=== PATIENT | male | born 1975 | race African-American/Black ===

== ENCOUNTER 2017-11-17 16:37 | Outpatient (CLI) | payer BC ==
[~2017-11-17 16:37] MED LIST: CYCLOBENZAPRINE10 MG PO; ISENTRESS400 MG PO; NAPROSYN500 MG PO; PROAIR HFA8.5 GM INH; TRAMADOL HCL150 MG PO; TRUVADA1 TAB PO; VICODIN 5-5001 EACH PO
--- NOTE | 2017-11-18 11:08 | Diagnostic Imaging Report ---
Indication: Cough Technique: XRAY Chest 2v Comparison: 08/15/2012 Findings: Heart size and mediastinal contours are within normal limits and stable compared to the prior exam. There is unchanged calcified right hilar lymph node and calcified granuloma in the right middle lobe. There is no new focal airspace consolidation, pleural effusion or pneumothorax. No acute osseous abnormality is seen. There is mild scoliosis which is unchanged. Impression: No radiographic evidence of acute cardiopulmonary disease. Stable findings as above.
== END 2017-11-17 18:37 | disposition home or self-care (01) ==
LOC: RAD 16:37
DX: J20.9 Acute bronchitis, unspecified (principal); R91.1 Solitary pulmonary nodule; M41.9 Scoliosis, unspecified
CPT/HCPCS: 71046

== ENCOUNTER 2020-08-13 10:50 | Inpatient (IN) | payer BC ==
[~2020-08-13] VITALS: Ht 193 cm; Wt 84.8 kg
[2020-08-13] VITALS (11 sets, daily range): BP systolic 124–136; BP diastolic 78–95
--- NOTE | 2020-08-13 07:09 | Pre-Procedure Note/Attestation ---
Pre-Procedure Note/Attestation Complete Prior to Procedure Planned Procedure: left Procedure Narrative: left knee i&d Indications for Procedure Pre-Operative Diagnosis: left knee abscess Attestation I attest that I discussed the nature of the procedure; its benefits; risks and complications; and alternatives (and the risks and benefits of such alternatives), prior to the procedure, with the patient (or the patient's legal roofing sales representative). I attest that, if there was a reasonable possibility of needing a blood tra nsfusion, the patient (or the patient's legal roofing sales representative) was given the [facility] standardized written summary, pursuant to the Juan Carlos Lily Blood Safety Act ([place] Health and Safety Code # 1645, as amended). I attest that I re-evaluated the patient just prior to the surgery and that there has been no change in the patient's H&P, except as documented below:none Johnny De Jesus MD Aug 13, 2020 07:09
[~2020-08-13 10:50] MED LIST changes: +Acetaminophen (Non formulary) 100 ML IV ONE; +ceFAZolin sod 1 GM in NS 55 ML IVPB ONE; +celeBREX 200mg Cap **SURGERY PATIENTS ONLY ORAL ONE; +oxyCONTIN 10mg tab ORAL ONE
[2020-08-13] MEDS ORDERED: TIVICAY50 MG ORAL (11:32)
[2020-08-13] MEDS ORDERED: Descovy PO (11:34)
[2020-08-13] MEDS ORDERED: NeoSporin Gu Irrig 1ml Amp IRRIG ONE (12:46)
[2020-08-13] MEDS ORDERED: Ropivacaine 5mg/ml Vial 30ml INJ ONE (12:46)
[2020-08-13] MEDS ORDERED: Bacitracin 50000 Units Vial ONE (12:46)
[2020-08-13] MEDS ORDERED: celeBREX 200mg Cap **SURGERY PATIENTS ONLY ORAL ONE (12:55)
[2020-08-13] MEDS ORDERED: oxyCONTIN 10mg tab ORAL ONE (12:55)
[2020-08-13] MEDS ORDERED: Hydromorphone 0.5mg/0.5ml inj SUBQ PRN (13:37)
[2020-08-13] MEDS ORDERED: HYDROcodone/Acetamin 5/325 tab ORAL PRN ×2 (13:45→14:00)
[2020-08-13] MEDS ORDERED: Sterile Water Irrig 1000ml IRRIG ONE (13:47)
[2020-08-13] MEDS ORDERED: LR 1000ml ONE (13:47)
[2020-08-13] MEDS ORDERED: NS Irrig 1000ml ONE (13:47)
--- NOTE | 2020-08-13 13:51 | Anethesia Preoperative Eval ---
Anesthesia Pre-op PMH/ROS General Date of Evaluation: Aug 13, 2020 Time of Evaluation: 13:47 Anesthesiologist: Janes ASA Score: ASA 3 Mallampati Score Class I : Soft palate, uvula, fauces, pillars visible Class II: Soft palate, uvula, fauces visible Class III: Soft palate, base of uvula visible Class IV: Only hard plate visible Mallampati Classification: Class III Surgeon: Neal Diagnosis: L Knee Pain Surgical Procedure: L Knee I&D Anesthesia History: none Family History: no anesthesia problems Allergies: Coded Allergies: No Known Allergies (Unverified , 08/15/12) Medications: see eMAR Patient NPO?: Yes Past Medical History Cardiovascular: Reports: HTN Hematology/Immune: Reports: other - HIV, AIDS PSxH Narrative: B THR Anesthesia Pre-op Phys. Exam Physician Exam Last Vital Signs Date Time Temp Pulse Resp B/P (MAP) Pulse Ox O2 Delivery O2 Flow Rate FiO2 08/13/20 12:08 Room Air 08/13/20 11:55 97.9 84 18 132/95 100 Constitutional: NAD Neurologic: CN 2-12 intact Cardiovascular: RRR Respiratory: CTA Gastrointestinal: S/NT/ND Airway Exam Mallampati Score: Class III MO: limited ROM: full Teeth: missing, intact Anesthesia Pre-op A/P Risk Assessment & Plan Assessment: ASA 3 Plan: GA, SED Status Change Before Surgery: No Pre-Antibiotics Dru Gram Ancef IV Given Within 1 Hr of Incision: Yes Time Given: 14:06 Bakari Marrero MD Aug 13, 2020 13:51
[2020-08-13] MEDS ORDERED: Lidocaine 1% MPF 10mg/ml 5ml ONE (13:56)
[2020-08-13] MEDS ORDERED: Sodium Chloride 10ml vial INJ ONE (13:56)
[2020-08-13] MEDS ORDERED: fentaNYL 100 mcg/2 mL IV ONE (13:57)
[2020-08-13] MEDS ORDERED: Midazolam 2mg/2ml Inj ONE (13:57)
[2020-08-13] MEDS ORDERED: LORazepam Inj 2mg/ml 1ml IV PRN (14:00)
[2020-08-13] MEDS ORDERED: Labetalol 5mg/ml 20ml vial IV PRN (14:00)
[2020-08-13] MEDS ORDERED: HYDROcodone/Acetamin 7.5/325 tab ORAL PRN (14:00)
[2020-08-13] MEDS ORDERED: Atropine Sulfate 0.4mg/ml inj IVP PRN (14:00)
[2020-08-13] MEDS ORDERED: Metoclopramide 10mg/2ml Inj IVP PRN (14:00)
[2020-08-13] MEDS ORDERED: Hydromorphone 0.5mg/0.5ml inj IVP PRN (14:00)
[2020-08-13] MEDS ORDERED: Ketorolac 30mg Inj IV PRN ×2 (14:00)
[2020-08-13] MEDS ORDERED: LR 1000ml 1,000 ML IVLG SCH (14:00)
[2020-08-13] MEDS ORDERED: Midazolam 2mg/2ml Inj IVP PRN (14:00)
[2020-08-13] MEDS ORDERED: oxyCODONE HCL/Acetaminophen 5/325mg ORAL PRN (14:00)
[2020-08-13] MEDS ORDERED: fentaNYL 100 mcg/2 mL IV PRN (14:00)
[2020-08-13] MEDS ORDERED: Meperidine 25mg/1ml Inj (FOR RIGORS ONLY) IV PRN (14:00)
[2020-08-13] MEDS ORDERED: Acetaminophen (Non formulary) 100 ML IV ONE (14:00)
[2020-08-13] MEDS ORDERED: DiphenhydrAMINE 50mg/ml Inj IVP PRN (14:00)
[2020-08-13] MEDS ORDERED: ceFAZolin sod 1 GM in D5W 55 ML IV SCH (14:00)
[2020-08-13] MEDS ORDERED: Vancomycin 1gm vial IVPB ONE (14:19)
--- NOTE | 2020-08-13 14:35 | Immediate Post-Op Evaluation ---
Immediate Post-Op Evalulation Immediate Post-Op Evalulation Procedure: L Knee I&D Date of Evaluation: Aug 13, 2020 Time of Evaluation: 15:07 IV Fluids: 800 LR Blood Products: 0 Estimated Blood Loss: 25 Urinary Output: 0 Blood Pressure Systolic: 124 Blood Pressure Diastolic: 78 Pulse Rate: 81 Respiratory Rate: 16 O2 Sat by Pulse Oximetry: 100 Temperature (Fahrenheit): 97.5 Pain Score (1-10): 2 Nausea: No Vomiting: No Complications 0 Patient Status: awake, reacts, patent, extubated, none Hydration Status: adequate Dru Gram Vancomycin IV Given Within 1 Hr of Incision: Yes Time Given: 13:06 Bakari Marrero MD Aug 13, 2020 14:35
--- NOTE | 2020-08-13 14:36 | 48 Hour Post Anesthesia Eval ---
Post Anesthesia Evaluation Procedure: L Knee I&D Date of Evaluation: Aug 13, 2020 Time of Evaluation: 17:12 Blood Pressure Systolic: 144 0: 81 Pulse Rate: 73 Respiratory Rate: 18 Temperature (Fahrenheit): 98 O2 Sat by Pulse Oximetry: 99 Airway: patent Nausea: No Vomiting: No Pain Intensity: 2 Hydration Status: adequate Cardiopulmonary Status: Stable Mental Status/LOC: patient returned to baseline Follow-up Care/Observations: 0 Post-Anesthesia Complications: 0 Follow-up care needed: N/A Bakari Marrero MD Aug 13, 2020 14:36
--- NOTE | 2020-08-13 14:44 | Brief Operative Note ---
Immediate Post Operative Note Operative Note Chief Complaint: left knee drainage Pre-op Diagnosis: left knee abscess Procedure: left knee I&D Post-op Diagnosis: same as pre-op Findings: consistent w/pre-op dx studies Surgeon: md jared Maintenance Carpenter: shabnam sinclair Anesthesiologist: md clarence Anesthesia: general Specimen: yes Complications: none Condition: stable Fluids: ns Estimated Blood Loss: minimal Drains: NARESH Implant(s) used?: No Johnny De Jesus MD Aug 13, 2020 14:44
[2020-08-13] MEDS: Docusate 100mg cap ORAL SCH (17:39)
--- NOTE | 2020-08-13 17:45 | Operative Note - Dictated ---
DATE OF OPERATION: 08/13/2020 PREOPERATIVE DIAGNOSIS: Left knee infected anterior tibial wound right over the anterior tibial tuberosity. POSTOPERATIVE DIAGNOSIS: Left knee infected anterior tibial wound right over the anterior tibial tuberosity. PROCEDURE: 1. Left anterior tibial tubercle infected wound irrigation and debridement. 2. Multiple cultures taken and sent to the lab for identification of organism. 3. Irrigation and debridement of the left anterior tibial wound over the anterior tibial tubercle with irrigation with 4 mL of triple antibiotic Simpulse irrigation. SURGEON: Johnny De Jesus MD GLOST KILN PLACER: Brii Tate PA-C ANESTHESIOLOGIST: Bakari Marrero MD ANESTHESIA: General LMA anesthesia. ESTIMATED BLOOD LOSS: Less than 50 mL. COMPLICATIONS: None. DRAINS: One NARESH drain placed in in the wound. BRIEF HISTORY: Patient is a pleasant 44-year-old gentleman who had a chronic inflamed bursa over the anterior tibial tubercle. He failed nonoperative treatment. After full discussion of risks and benefits of surgery, he opted for surgical treatment in the form of resection of the bursa. This was performed approximately a month ago. He did well for about 2 weeks and on the third postop week, he started draining from his wound. He presented to the ER and the wound was opened, irrigated, and debrided in the ER and packed. He was started on Keflex and Bactrim last week on Wednesday. He continued on oral antibiotics, although he continued to have some draining from the wound after the packing was removed. After full discussion of risks and benefits of surgery and complications associated with it including continued infection, need for further surgery, neurovascular complications, possible DVT, PE, possibility of chronic cellulitis and osteomyelitis, and other complications that may arise, he opted for surgical treatment in form of irrigation and debridement of the wound. OPERATIVE PROCEDURE: Patient was brought to the operative table and was placed supine. All pressure points were well padded. General LMA anesthesia was induced. Left leg was prepped and draped in usual sterile fashion. Tourniquet was not inflated. The anterior knee wound was draining. The wound was opened. Preoperative antibiotics were not given. Multiple deep cultures were obtained once the wound was opened. There was some area there was an extensive amount of serous brown fluid that was collected into the medial tibial face just medial to the anterior tibial tubercle over the pes anserinus bursal area. This area was completely debrided using combination of curettes, rongeurs, and other material. The cultures were sent into the laboratory and tissue cultures were sent to the laboratory. At this point, 1 g of vancomycin antibiotic was given after cultures were obtained. At this point, the debridement was undertaken. All chronically inflamed then necrotic tissue was removed. Wounds were thoroughly irrigated using 4 liters of Simpulse triple antibiotic irrigation. Once this was completed, there was excellent granulation tissue around the knee wound. The knee wound was extended 1.5 centimeter proximally and distally and this provided excellent exposure. There was no necrotic tissue and there was good vascularity to the area. At this point, a drain hole was made medially and inferiorly and a #10 NARESH drain was placed in. The NARESH drain was then tied in without any complication. Once this was completed, the wound was closed using 3-0 nylon sutures. Sterile dressing was applied. Patient was taken to recovery room in stable condition. All lap counts and instrument counts were correct. Patient will be admitted for IV antibiotic treatment and consultation with infectious disease specialist. Johnny De Jesus M.D. DR: ELLEN JOB#: [id number] CC: DARION
[2020-08-13] MEDS ORDERED: D5 1/2NS 1,000 ML IV SCH (18:00)
[2020-08-13] MEDS ORDERED: Albuterol 90mcg Inhaler 8gm INH PRN (18:15)
[2020-08-13] MEDS ORDERED: Albuterol ud Inhalation HHN PRN (18:15)
[2020-08-13] MEDS: HYDROmorphone 1mg/ml Carpuject SUBQ PRN (19:58)
[2020-08-13] MEDS: Vancomycin 1.25gm Premix q24h IVPB SCH (20:03)
[2020-08-13] MEDS ORDERED: Vancomycin 1 GM in D5W 275 ML IVPB SCH (21:00)
[2020-08-13] MEDS ORDERED: Dolutegravir Sodium 50mg tab ORAL SCH (21:00)
[2020-08-14 00:05] VITALS: BP 131/77
[2020-08-14 03:55] VITALS: BP 126/76
[2020-08-14] MEDS: HYDROmorphone 1mg/ml Carpuject SUBQ PRN ×4 (05:26→21:56)
[2020-08-14 06:03] LABS: BASOPHILS % (AUTO) 0.6 % (0.0-2.0); EOSINOPHILS % (AUTO) 0.4 % (0.0-3.0); HEMATOCRIT 42.9 % (42.0-52.0); LYMPHOCYTES % (AUTO) 19.3 % (20.0-45.0); MEAN CORPUSCULAR VOLUME 98 FL (80-99); MONOCYTES % (AUTO) 6.7 % (1.0-10.0); PLATELET COUNT 336 K/UL (150-450); RED BLOOD COUNT 4.36 M/UL (4.70-6.10); RED CELL DISTRIBUTION WIDTH 12.6 % (11.6-14.8); WHITE BLOOD COUNT 6.9 K/UL (4.8-10.8)
[2020-08-14 06:30] LABS: BLOOD UREA NITROGEN 12 mg/dL (7-18); CALCIUM 8.5 MG/DL (8.5-10.1); CARBON DIOXIDE 30 MMOL/L (21-32); CHLORIDE 102 MMOL/L (98-107); CREATININE 1.3 MG/DL (0.55-1.30); POTASSIUM 4.2 MMOL/L (3.5-5.1); SODIUM 136 MMOL/L (136-145)
[2020-08-14 08:00] VITALS: BP 126/74
--- NOTE | 2020-08-14 08:14 | Orthopedic Progress Note ---
Orthopedic - Progress Note Subjective Symptoms: improved - drain emptied this morning. 2ML overnight. on vanco for now. waiting for ID recs Objective Laboratory Tests Test 08/14/20 05:44 White Blood Count 6.9 K/UL (4.8-10.8) Red Blood Count 4.36 M/UL (4.70-6.10) L Hemoglobin 14.0 G/DL (14.2-18.0) L Hematocrit 42.9 % (42.0-52.0) Mean Corpuscular Volume 98 FL (80-99) Mean Corpuscular Hemoglobin 32.1 PG (27.0-31.0) H Mean Corpuscular Hemoglobin Concent 32.6 G/DL (32.0-36.0) Red Cell Distribution Width 12.6 % (11.6-14.8) Platelet Count 336 K/UL (150-450) Mean Platelet Volume 5.6 FL (6.5-10.1) L Neutrophils (%) (Auto) 73.0 % (45.0-75.0) Lymphocytes (%) (Auto) 19.3 % (20.0-45.0) L Monocytes (%) (Auto) 6.7 % (1.0-10.0) Eosinophils (%) (Auto) 0.4 % (0.0-3.0) Basophils (%) (Auto) 0.6 % (0.0-2.0) Sodium Level 136 MMOL/L (136-145) Potassium Level 4.2 MMOL/L (3.5-5.1) Chloride Level 102 MMOL/L (98-107) Carbon Dioxide Level 30 MMOL/L (21-32) Blood Urea Nitrogen 12 mg/dL (7-18) Creatinine 1.3 MG/DL (0.55-1.30) Estimat Glomerular Filtration Rate > 60 mL/min (>60) Glucose Level 133 MG/DL (74-106) H Calcium Level 8.5 MG/DL (8.5-10.1) Last 24 Hour Vital Signs Date Time Temp Pulse Resp B/P (MAP) Pulse Ox O2 Delivery O2 Flow Rate FiO2 08/14/20 03:55 98.2 104 18 126/76 (93) 97 08/14/20 00:05 98.4 84 17 131/77 (95) 97 08/13/20 21:00 Room Air 11/3/20 20:28 98.2 08/13/20 20:00 98.2 92 17 136/90 (105) 96 08/13/20 17:00 97.9 82 127/88 (101) 96 08/13/20 16:30 97.5 78 127/87 (100) 96 08/13/20 16:19 Room Air 08/13/20 16:00 98.8 78 134/86 (102) 98 08/13/20 16:00 97.6 82 19 130/84 99 Room Air 08/13/20 15:45 81 20 129/86 99 Room Air 08/13/20 15:30 78 19 130/86 100 Room Air 08/13/20 15:15 80 17 130/81 100 Simple Mask 6.0 08/13/20 15:06 83 18 130/83 100 Simple Mask 6.0 08/13/20 15:01 82 17 134/81 100 Simple Mask 6.0 08/13/20 14:56 97.5 81 16 124/78 100 Simple Mask 6.0 08/13/20 14:54 73 18 99 08/13/20 14:53 81 16 100 08/13/20 12:08 Room Air 08/13/20 12:05 Room Air 08/13/20 11:55 97.9 84 18 132/95 100 Room Air Intake and Output 08/13/20 08/14/20 19:00 07:00 Intake Total 500 ml 1675 ml Output Total 2002 ml Balance 500 ml -327 ml Intake Oral 0 ml 1000 ml IV Total 500 ml 675 ml Output Urine Total 2000 ml Drainage Total 2 ml # Voids 1 3 # Bowel Movements 1 Laboratory Tests Test 08/14/20 05:44 White Blood Count 6.9 K/UL (4.8-10.8) Red Blood Count 4.36 M/UL (4.70-6.10) L Hemoglobin 14.0 G/DL (14.2-18.0) L Hematocrit 42.9 % (42.0-52.0) Mean Corpuscular Volume 98 FL (80-99) Mean Corpuscular Hemoglobin 32.1 PG (27.0-31.0) H Mean Corpuscular Hemoglobin Concent 32.6 G/DL (32.0-36.0) Red Cell Distribution Width 12.6 % (11.6-14.8) Platelet Count 336 K/UL (150-450) Mean Platelet Volume 5.6 FL (6.5-10.1) L Neutrophils (%) (Auto) 73.0 % (45.0-75.0) Lymphocytes (%) (Auto) 19.3 % (20.0-45.0) L Monocytes (%) (Auto) 6.7 % (1.0-10.0) Eosinophils (%) (Auto) 0.4 % (0.0-3.0) Basophils (%) (Auto) 0.6 % (0.0-2.0) Sodium Level 136 MMOL/L (136-145) Potassium Level 4.2 MMOL/L (3.5-5.1) Chloride Level 102 MMOL/L (98-107) Carbon Dioxide Level 30 MMOL/L (21-32) Blood Urea Nitrogen 12 mg/dL (7-18) Creatinine 1.3 MG/DL (0.55-1.30) Estimat Glomerular Filtration Rate > 60 mL/min (>60) Glucose Level 133 MG/DL (74-106) H Calcium Level 8.5 MG/DL (8.5-10.1) Wound: clean, dry, intact Drains: NARESH - just emptied. 2ML overnight Neuro Status: normal Vascular Status: normal Additional Comments cx pending Assessment Post-op Diagnosis POD 1 Procedure Performed Left knee I&D Plan Plan: continue antibiotics - will keep vanco q12 ordered for now. ID team to see and adjust meds as appropriate. , continue drain - monitor drainage today. likely d/c tomorrow , discharge plan - may need longer inpt stay pending ID recs. If ID can start pt on PO abx, may be able to d/c home tomorrow. Brii Tate Aug 14, 2020 08:14
[2020-08-14] MEDS: Docusate 100mg cap ORAL SCH ×3 (08:56→17:42)
[2020-08-14] MEDS: DESCOVY ORAL SCH (08:56)
[2020-08-14] MEDS: Vancomycin 1.25gm Premix q24h IVPB SCH ×2 (08:56→21:55)
[2020-08-14] MEDS: Patient's Own Med - Tivicay 50mg ORAL SCH (08:57)
[2020-08-14 12:00] VITALS: BP 125/74
--- NOTE | 2020-08-14 12:40 | CDS Physician Query ---
Clarification is required for compliance, coding accuracy, and to reflect severity of illness for this patient Dear Dr. Johnny De Jesus Date: 08/14/2020 CDS name: Radha Cueto Clinical Documentation states: Op note: 44-year-old gentleman who had a chronic inflamed bursa over the anterior tibial tubercle... he opted for surgical treatment in the form of resection of the bursa. This was performed approximately a month ago... he started draining from his wound....debridement was undertaken. All chronically inflamed then necrotic tissue was removed. Wounds were thoroughly irrigated using 4 liters of Simpulse triple antibiotic irrigation. Once this was completed, there was excellent granulation tissue around the knee wound. Because there is documentation in the medical record of "Debridement," clarification is needed. Please document whether this is "Excisional" or "Nonexcisional" Debridement" of the wound, infection or burn. Specific type of debridement performed: [] Excisional: Please document the depth of tissue [] Skin [] Subcutaneous tissue and Fascia [] Muscle [] Joint [] Bone [x] Nonexcisional: [] Skin [x] Subcutaneous tissue and Fascia [] Muscle [] Joint [] Bone Present on Admission: [x] Yes [] No [] Clinically Undetermined Physician signature Date Please also document in your Progress Notes and/or Discharge Summary and indicate if the condition was present on admission. MTDD
--- NOTE | 2020-08-14 13:40 | Infectious Diseases Prog Note ---
Assessment/Plan Assessment/Plan Full consult to follow: A) 1) s/p chronic inflamed bursa resection left knee 2) left knee infected anterior tibial wound right over the anterior tibial tuberosity 3) treated with bactrim and keflex with persistent wound drainage 4) s/p debridement of infected wound - 08/13/20 - operative note reviewed P) 1) vancomycin iv 2) f/u on wound culture 3) d/w Dr. Grimm 4) monitor creatinine 5) thank you Subjective Allergies: Coded Allergies: No Known Allergies (Unverified , 08/15/12) Objective Last 24 Hour Vital Signs Date Time Temp Pulse Resp B/P (MAP) Pulse Ox O2 Delivery O2 Flow Rate FiO2 08/14/20 12:00 98.2 89 18 125/74 (91) 97 08/14/20 08:00 98.2 89 18 126/74 (91) 97 08/14/20 03:55 98.2 104 18 126/76 (93) 97 08/14/20 00:05 98.4 84 17 131/77 (95) 97 08/13/20 21:00 Room Air 08/13/20 20:28 98.2 08/13/20 20:00 98.2 92 17 136/90 (105) 96 08/13/20 17:00 97.9 82 127/88 (101) 96 08/13/20 16:30 97.5 78 127/87 (100) 96 08/13/20 16:19 Room Air 08/13/20 16:00 98.8 78 134/86 (102) 98 08/13/20 16:00 97.6 82 19 130/84 99 Room Air 08/13/20 15:45 81 20 129/86 99 Room Air 08/13/20 15:30 78 19 130/86 100 Room Air 08/13/20 15:15 80 17 130/81 100 Simple Mask 6.0 08/13/20 15:06 83 18 130/83 100 Simple Mask 6.0 08/13/20 15:01 82 17 134/81 100 Simple Mask 6.0 08/13/20 14:56 97.5 81 16 124/78 100 Simple Mask 6.0 08/13/20 14:54 73 18 99 08/13/20 14:53 81 16 100 Height (Feet): 6 Height (Inches): 4.00 Weight (Pounds): 187 Microbiology Date/Time Source Procedure Growth Status 08/13/20 13:00 Knee Left Gram Stain - Final Resulted 08/13/20 13:00 Knee Left Aerobic Culture - Preliminary NO GROWTH Resulted 08/13/20 13:00 Knee Left Anaerobic Culture Pending Resulted 08/12/20 13:40 Nasopharynx SARS-CoV-2 RdRp Gene Assay - Final Complete Laboratory Tests Test 08/14/20 05:44 White Blood Count 6.9 K/UL (4.8-10.8) Red Blood Count 4.36 M/UL (4.70-6.10) L Hemoglobin 14.0 G/DL (14.2-18.0) L Hematocrit 42.9 % (42.0-52.0) Mean Corpuscular Volume 98 FL (80-99) Mean Corpuscular Hemoglobin 32.1 PG (27.0-31.0) H Mean Corpuscular Hemoglobin Concent 32.6 G/DL (32.0-36.0) Red Cell Distribution Width 12.6 % (11.6-14.8) Platelet Count 336 K/UL (150-450) Mean Platelet Volume 5.6 FL (6.5-10.1) L Neutrophils (%) (Auto) 73.0 % (45.0-75.0) Lymphocytes (%) (Auto) 19.3 % (20.0-45.0) L Monocytes (%) (Auto) 6.7 % (1.0-10.0) Eosinophils (%) (Auto) 0.4 % (0.0-3.0) Basophils (%) (Auto) 0.6 % (0.0-2.0) Sodium Level 136 MMOL/L (136-145) Potassium Level 4.2 MMOL/L (3.5-5.1) Chloride Level 102 MMOL/L (98-107) Carbon Dioxide Level 30 MMOL/L (21-32) Blood Urea Nitrogen 12 mg/dL (7-18) Creatinine 1.3 MG/DL (0.55-1.30) Estimat Glomerular Filtration Rate > 60 mL/min (>60) Glucose Level 133 MG/DL (74-106) H Calcium Level 8.5 MG/DL (8.5-10.1) Current Medications Medications (Trade) Dose Ordered Sig/Eusebia Route PRN Reason Start Time Stop Time Status Last Admin Dose Admin Acetaminophen (Tylenol) 650 mg Q6H PRN ORAL mild pain 08/13/20 13:45 09/12/20 13:44 Acetaminophen/ Hydrocodone Bitart (Berne 5/325) 1 tab Q4H PRN ORAL For Pain 08/13/20 13:45 08/20/20 13:44 Albuterol Sulfate (Proventil) 2.5 mg Q6H PRN HHN WHEEZING 08/13/20 18:15 08/18/20 18:14 Docusate Sodium (Colace) 100 mg THREE TIMES A DAY ORAL 08/13/20 18:00 09/12/20 17:59 08/14/20 12:10 Hydromorphone HCl (Dilaudid) 0.5 mg Q4H PRN SUBQ Mild Pain (Pain Scale 1-3) 08/13/20 13:37 08/20/20 13:36 Hydromorphone HCl (Dilaudid) 1 mg Q3H PRN SUBQ Moderate Pain (Pain Scale 4-6) 08/13/20 13:45 08/20/20 13:44 08/14/20 09:04 Ondansetron HCl (Zofran) 4 mg Q6H PRN IVP Nausea & Vomiting 08/13/20 13:45 09/12/20 13:44 Patient Own Medication (Patient's Own Med) 1 ea DAILY ORAL 08/14/20 09:00 09/13/20 08:59 08/14/20 08:56 Patient Own Medication (Patient's Own Med) 1 ea DAILY ORAL 08/14/20 09:00 09/13/20 08:59 08/14/20 08:57 Temazepam (RestoriL) 7.5 mg HSPRN PRN ORAL Insomnia 08/13/20 13:45 08/20/20 13:44 Vancomycin HCl 250 ml @ 166.667 mls/hr Q12HR IVPB 08/13/20 21:00 08/18/20 20:59 08/14/20 08:56 Vancomycin HCl (Vanco pharmacy to dose) 1 ea DAILY PRN MISC . 08/13/20 15:30 09/12/20 15:29 Gill Cifuentes MD Aug 14, 2020 13:40
[2020-08-14 16:00] VITALS: BP 128/88
--- NOTE | 2020-08-14 18:30 | Consultation ---
DATE OF CONSULTATION: 08/14/2020 INFECTIOUS DISEASE CONSULTATION CONSULTING PHYSICIAN: Gill Cifuentes MD. ATTENDING PHYSICIAN: Johnny De Jesus MD. REFERRING PHYSICIAN: Johnny De Jesus MD. REASON FOR CONSULTATION: Left knee and lower extremity infected wound. CHIEF COMPLAINT: The patient's chief complaint coming into the hospital is left knee and lower extremity infected wound, need for debridement. HISTORY OF PRESENT ILLNESS: This is a very pleasant 44-year-old male who presents to [facility] with left lower extremity wound infection or infected wound involving the left knee area. The patient is status post resection of chronic inflamed bursa that failed nonoperative treatment. This resection prior to admission was performed about a month prior to admission. About two weeks and into the third postop week, he had a drainage from his wound. The patient presented to an emergency room where he had the wound debrided in the ER and packed. He was given Keflex and Bactrim, but noted on the oral antibiotics to still have drainage from the wound. I reviewed the cultures of [facility] and there was a group C Streptococcus organism. The patient now was admitted to [facility] for further irrigation and debridement of the left knee and lower extremity or leg infected wound. I saw the patient postoperatively. His left lower extremity and knee is covered. Wound culture at this time is pending. COVID testing was negative prior to surgery. Infectious Disease consultation was requested for antibiotic management. I discussed again the case with Dr. De Jesus yesterday and he is on perioperative vancomycin currently. Orders were noted and records were reviewed. REVIEW OF SYSTEMS: CONSTITUTIONAL: He has no focal weakness. No fatigue. He did not have any fever or chills prior to admission. He did have the left lower extremity or knee wound drainage. HEAD AND NECK: He denies any headache, neck stiffness, thrush, or dysphagia. GASTROINTESTINAL: No nausea or diarrhea. GENITOURINARY: No Gilliam. No CVA tenderness. No urinary symptoms. PULMONARY: No shortness of breath. SKIN: No rash. PAST MEDICAL HISTORY: As discussed, he has a history of left knee chronic inflamed bursa. Otherwise, no history of diabetes or hypertension. ALLERGIES: No known drug allergies. No antibiotic allergies. SOCIAL HISTORY: Negative for smoking, alcohol, or drug abuse. FAMILY HISTORY: Noncontributory. MEDICATIONS: Upon reviewing the MAR, he is on following medications. The patient has his own medications. He is on vancomycin, albuterol, and docusate. Vancomycin being dosed by pharmacy. He is on diphenhydramine, labetalol, meperidine, Zofran lorazepam, Reglan, Apresoline; these are all p.r.n. medications; oxycodone p.r.n.; hydrocodone, hydromorphone, Zofran, and temazepam. Outside medications noted and reconciliated. PHYSICAL EXAMINATION: VITAL SIGNS: Temperature 98.2, pulse rate 89, respiratory rate 18, blood pressure 125/74. Saturation 97%. GENERAL: Alert and responsive, in no acute distress. HEAD AND NECK: Oral exam, no thrush. Eyes, no icterus. Normocephalic. Neck is supple. No JVD. HEART: Regular. No gallop or murmur. LUNGS: Clear bilaterally. No rhonchi or rales. ABDOMEN: Soft. Positive bowel sounds. Nontender. SKIN: No rash. MUSCULOSKELETAL: Legs are without any obvious cellulitis. Knee is covered. PERIPHERAL VASCULAR: No gangrene or cyanosis. LINE SITES: Without phlebitis. GENITOURINARY: No Gilliam. NEUROLOGIC: Intact. LABORATORY DATA: White count 6.9, hemoglobin 14.0. Creatinine is 1.3. Cultures - surgical culture for left knee is still pending. COVID testing is negative. Outside records, [facility] records show that the culture of the left knee had group C Streptococcus species. IMAGING: No imaging studies currently. ASSESSMENT AND PLAN: 1. The patient is status post chronic inflamed bursa resection of left knee with secondary infected wound that still had persistent drainage after Bactrim and Keflex. Wound culture grew out group C Streptococcus species. The patient is now status post left knee infected anterior tibial wound debridement and irrigation. At this time, we will continue IV vancomycin for Streptococcus coverage and also Staphylococcus coverage. Continue IV vancomycin until surgical cultures are back and then adjust antibiotics accordingly. Monitor creatinine closely also on vancomycin. Debridement of the left knee and leg wound infection was on 08/13/2020. Vancomycin will be dosed by pharmacy. 2. History of chronic inflamed bursa. 3. Resection of chronic inflamed bursa. 4. The patient has no known drug allergies. 5. Social history is negative. 6. Family history is noncontributory. 7. MAR is noted. 8. Case was discussed with RN. 9. Case was discussed with Dr. De Jesus. 10. Continue treatment per Dr. De Jesus and monitor the patient closely. Gill Cifuentes M.D. DR: SADIE JOB#: [id number] CC:
[2020-08-14 20:00] VITALS: BP 122/70
[2020-08-15 04:00] VITALS: BP 130/76
[2020-08-15] MEDS: HYDROmorphone 1mg/ml Carpuject SUBQ PRN ×2 (05:09→09:02)
--- NOTE | 2020-08-15 07:30 | Orthopedic Progress Note ---
Orthopedic - Progress Note Subjective Additional Comments Doing ok, minimal pain. Ambulating. Drain in place, 15 cc over the past shift Objective Last 24 Hour Vital Signs Date Time Temp Pulse Resp B/P (MAP) Pulse Ox O2 Delivery O2 Flow Rate FiO2 08/15/20 04:00 98.0 84 18 130/76 (94) 96 08/14/20 21:00 Room Air 08/14/20 20:00 98.6 77 19 122/70 (87) 97 08/14/20 16:00 98.3 93 18 128/88 (101) 96 08/14/20 12:00 98.2 89 18 125/74 (91) 97 08/14/20 09:00 Room Air 08/14/20 08:00 98.2 89 18 126/74 (91) 97 Intake and Output 08/14/20 08/15/20 19:00 07:00 Output Total 18 ml 15 ml Balance -18 ml -15 ml Drainage Total 18 ml 15 ml # Voids 4 3 Wound: clean, dry Neuro Status: normal Vascular Status: normal Assessment Procedure Performed left knee I&D Plan Plan: PT Additional Comments Awaiting Infection Disease recommendation to convert from IV to po for discharge. Will continue drain till tomorrow. If ok to discharge today on PO abx, then drain will come out in the office tomorrow Johnny De Jesus MD Aug 15, 2020 07:30
[2020-08-15 08:00] VITALS: BP 107/69
[2020-08-15] MEDS: Docusate 100mg cap ORAL SCH ×2 (09:02→13:00)
[2020-08-15] MEDS: Vancomycin 1.25gm Premix q24h IVPB SCH (09:02)
[2020-08-15] MEDS: DESCOVY ORAL SCH (09:18)
[2020-08-15] MEDS: Patient's Own Med - Tivicay 50mg ORAL SCH (09:18)
[2020-08-15 09:24] LABS: BASOPHILS % (AUTO) 1.7 % (0.0-2.0); HEMATOCRIT 49.2 % (42.0-52.0); HEMOGLOBIN 15.7 G/DL (14.2-18.0); LYMPHOCYTES % (AUTO) 27.9 % (20.0-45.0); MEAN CORPUSCULAR VOLUME 100 FL (80-99); MONOCYTES % (AUTO) 11.4 % (1.0-10.0); NEUTROPHILS % (AUTO) 58.1 % (45.0-75.0); PLATELET COUNT 326 K/UL (150-450); RED BLOOD COUNT 4.93 M/UL (4.70-6.10); WHITE BLOOD COUNT 5.7 K/UL (4.8-10.8)
[2020-08-15 09:43] LABS: ANION GAP 6 mmol/L (5-15); BLOOD UREA NITROGEN 10 mg/dL (7-18); CALCIUM 8.7 MG/DL (8.5-10.1); CARBON DIOXIDE 29 MMOL/L (21-32); CHLORIDE 104 MMOL/L (98-107); CREATININE 1.1 MG/DL (0.55-1.30); POTASSIUM 4.1 MMOL/L (3.5-5.1); SODIUM 139 MMOL/L (136-145)
--- NOTE | 2020-08-15 09:57 | Discharge Summary ---
Discharge Summary Hospital Course Date of Admission Aug 13, 2020 at 15:37 Date of Discharge 08/15/2020 Admitting Diagnosis left knee effusion Reason for Hospitalization: s/p left knee I&D HPI Brijesh Higginbotham is a 44 year old male who was admitted on Aug 13, 2020 at 15:37 for Effusion, Left Knee Consultations ID Procedures Left knee I&D Hospital Course benign Discharge Condition Upon Discharge: improving Discharge Vital Signs Last Vital Signs Date Time Temp Pulse Resp B/P (MAP) Pulse Ox O2 Delivery O2 Flow Rate FiO2 08/15/20 09:00 Room Air 08/15/20 08:00 97.9 87 18 107/69 (82) 96 08/13/20 15:15 6.0 Discharge Disposition Patient was discharged to home on PO abx regimen rec by ID team. Pt has f/u with us tomorrow in the office for drain removal Brii Tate Aug 15, 2020 09:57
[2020-08-15 12:00] VITALS: BP 122/66
[2020-08-15] MEDS ORDERED: D5 1/2NS 1000ml IV ONE (13:13)
--- NOTE | 2020-08-15 13:41 | Infectious Diseases Prog Note ---
Assessment/Plan Assessment/Plan A) 1) s/p chronic inflamed bursa resection left knee 2) left knee infected anterior tibial wound right over the anterior tibial tuberosity 3) treated with bactrim and keflex with persistent wound drainage 4) s/p debridement of infected wound - 08/13/20 - operative note reviewed P) 1) vancomycin iv 2) can discharge on bactrim plus keflex until final culture back - will cover staph aureus/mrsa and group c streptococcus 3) f/u on wound culture final 4) d/w Dr. Grimm 5) d/w patient Subjective Constitutional: Denies: fever HEENT: Denies: congestion Respiratory: Denies: shortness of breath Cardiovascular: Denies: chest pain Gastrointestinal/Abdominal: Denies: nausea, vomiting Genitourinary: Reports: other - no ayoub Skin: Denies: rash Hematologic: Denies: bleeding Musculoskeletal: Reports: pain - some left knee pain post-op Allergies: Coded Allergies: No Known Allergies (Unverified , 08/15/12) Objective Last 24 Hour Vital Signs Date Time Temp Pulse Resp B/P (MAP) Pulse Ox O2 Delivery O2 Flow Rate FiO2 08/15/20 12:00 98.0 80 18 122/66 (84) 97 08/15/20 09:32 98.0 08/15/20 09:00 Room Air 08/15/20 08:00 97.9 87 18 107/69 (82) 96 08/15/20 04:00 98.0 84 18 130/76 (94) 96 08/14/20 21:00 Room Air 08/14/20 20:00 98.6 77 19 122/70 (87) 97 08/14/20 16:00 98.3 93 18 128/88 (101) 96 Height (Feet): 6 Height (Inches): 4.00 Weight (Pounds): 187 General Appearance: no acute distress HEENT: normocephalic, atraumatic, anicteric Respiratory/Chest: lungs clear, no respiratory distress, no accessory muscle use Cardiovascular: normal rate, regular rhythm, no gallop/murmur Abdomen: normal bowel sounds, soft, non tender, no organomegaly Genitourinary: other - no ayoub Skin: no rash Neurologic/Psychiatric: stave bolt equalizer II-XII grossly normal, alert, oriented x 3 Musculoskeletal: other - left knee with drain noted Microbiology Date/Time Source Procedure Growth Status 08/13/20 13:00 Knee Left Gram Stain - Final Resulted 08/13/20 13:00 Knee Left Wound Culture Pending Resulted 08/13/20 13:00 Knee Left Gram Stain - Final Resulted 08/13/20 13:00 Aerobic Culture - Preliminary Gram Positive Cocci Resulted 08/13/20 13:00 Knee Left Anaerobic Culture Pending Resulted 08/12/20 13:40 Nasopharynx SARS-CoV-2 RdRp Gene Assay - Final Complete Laboratory Tests Test 08/15/20 08:15 White Blood Count 5.7 K/UL (4.8-10.8) Red Blood Count 4.93 M/UL (4.70-6.10) Hemoglobin 15.7 G/DL (14.2-18.0) Hematocrit 49.2 % (42.0-52.0) Mean Corpuscular Volume 100 FL (80-99) H Mean Corpuscular Hemoglobin 31.9 PG (27.0-31.0) H Mean Corpuscular Hemoglobin Concent 32.0 G/DL (32.0-36.0) Red Cell Distribution Width 13.0 % (11.6-14.8) Platelet Count 326 K/UL (150-450) Mean Platelet Volume 5.5 FL (6.5-10.1) L Neutrophils (%) (Auto) 58.1 % (45.0-75.0) Lymphocytes (%) (Auto) 27.9 % (20.0-45.0) Monocytes (%) (Auto) 11.4 % (1.0-10.0) H Eosinophils (%) (Auto) 1.0 % (0.0-3.0) Basophils (%) (Auto) 1.7 % (0.0-2.0) Sodium Level 139 MMOL/L (136-145) Potassium Level 4.1 MMOL/L (3.5-5.1) Chloride Level 104 MMOL/L (98-107) Carbon Dioxide Level 29 MMOL/L (21-32) Anion Gap 6 mmol/L (5-15) Blood Urea Nitrogen 10 mg/dL (7-18) Creatinine 1.1 MG/DL (0.55-1.30) Estimat Glomerular Filtration Rate > 60 mL/min (>60) Glucose Level 79 MG/DL (74-106) Calcium Level 8.7 MG/DL (8.5-10.1) Vancomycin Level Trough 9.8 ug/mL (5.0-12.0) Current Medications Medications (Trade) Dose Ordered Sig/Eusebia Route PRN Reason Start Time Stop Time Status Last Admin Dose Admin Acetaminophen (Tylenol) 650 mg Q6H PRN ORAL mild pain 08/13/20 13:45 09/12/20 13:44 Acetaminophen/ Hydrocodone Bitart ([place] 5/325) 1 tab Q4H PRN ORAL For Pain 08/13/20 13:45 08/20/20 13:44 Albuterol Sulfate (Proventil) 2.5 mg Q6H PRN HHN WHEEZING 08/13/20 18:15 08/18/20 18:14 Docusate Sodium (Colace) 100 mg THREE TIMES A DAY ORAL 08/13/20 18:00 09/12/20 17:59 08/15/20 09:02 Hydromorphone HCl (Dilaudid) 0.5 mg Q4H PRN SUBQ Mild Pain (Pain Scale 1-3) 08/13/20 13:37 08/20/20 13:36 Hydromorphone HCl (Dilaudid) 1 mg Q3H PRN SUBQ Moderate Pain (Pain Scale 4-6) 08/13/20 13:45 08/20/20 13:44 08/15/20 09:02 Ondansetron HCl (Zofran) 4 mg Q6H PRN IVP Nausea & Vomiting 08/13/20 13:45 09/12/20 13:44 Patient Own Medication (Patient's Own Med) 1 ea DAILY ORAL 08/14/20 09:00 09/13/20 08:59 08/15/20 09:18 Patient Own Medication (Patient's Own Med) 1 ea DAILY ORAL 08/14/20 09:00 09/13/20 08:59 08/15/20 09:18 Temazepam (RestoriL) 7.5 mg HSPRN PRN ORAL Insomnia 08/13/20 13:45 08/20/20 13:44 Vancomycin HCl 250 ml @ 166.667 mls/hr Q12HR IVPB 08/13/20 21:00 08/18/20 20:59 08/15/20 09:02 Vancomycin HCl (Vanco pharmacy to dose) 1 ea DAILY PRN MISC . 08/13/20 15:30 09/12/20 15:29 Gill Cifuentes MD Aug 15, 2020 13:41
== END 2020-08-15 16:08 | disposition home or self-care (01) | DRG 858 ==
LOC: SUR 10:50 → OBSVTOIN 15:37 → INTOOBSV 15:37 → 3E 15:37 → UNDOADMOB 15:37
PROC: 0JDP0ZZ Extraction of Left Lower Leg Subcutaneous Tissue and Fascia, Open Approach (ICD-10-PCS; principal; 2020-08-13 14:30)
DX: T81.49XA Infection following a procedure, other surgical site, initial encounter (principal); Y83.8 Other surgical procedures as the cause of abnormal reaction of the patient, or of later complication, without mention of misadventure at the time of the procedure; B95.4 Other streptococcus as the cause of diseases classified elsewhere
CPT/HCPCS: 36415; 80048; 80202; 85025; 87070; 87075; 87205; 94003; 94150; J2250; J2405; U0002